=== PATIENT | male | born 1980 | race Caucasian/White ===

== ENCOUNTER 2017-01-11 19:06 | Emergency (ER) | payer OTHER ==
[2017-01-11 19:19] VITALS: O2SAT 99
--- NOTE | 2017-01-11 19:41 | ERPHSYRPT ---
- History of Present Illness Time Seen by Provider: 01/11/17 19:35 Source: patient, police Exam Limitations: intoxication Patient Subjective Stated Complaint: "i drank a fifth of whiskey w 3 other people". 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 The patient is clearly intoxicated and smells of alcohol. He tells me he is a little bit tired but has no complaints. He states he shared two 40 ounce bottles of whiskey. Timing/Duration: today Severity: moderate Modifying Factors: Improves With: other (alcohol) Allergies/Adverse Reactions: No Known Drug Allergies Allergy (Verified 01/11/17 19:19) Home Medications: No Home Meds 1 ea UD 11/19/16 [History] Hx Influenza Vaccination/Date Given: Yes (2012) - Review of Systems Constitutional: No Fever, No Chills Eyes: No Symptoms Ears, Nose, & Throat: No Symptoms Respiratory: No Cough, No Dyspnea Cardiac: No Chest Pain, No Edema, No Syncope Abdominal/Gastrointestinal: No Abdominal Pain, No Nausea, No Vomiting, No Diarrhea Genitourinary Symptoms: No Dysuria Musculoskeletal: No Back Pain, No Neck Pain Skin: No Rash Neurological: Irritability Psychological: Alcohol Abuse Endocrine: No Symptoms Hematologic/Lymphatic: No Symptoms Immunological/Allergic: No Symptoms All Other Systems: Reviewed and Negative - Past Medical History Neurological History: No Pertinent History ENT History: No Pertinent History Cardiac History: No Pertinent History Respiratory History: Bronchitis Endocrine Medical History: No Pertinent History Musculoskeletal History: Degenerative Disk Disease GI Medical History: No Pertinent History History: No Pertinent History Psycho-Social History: Anxiety Male Reproductive Disorders: No Pertinent History - Past Surgical History Past Surgical History: Yes Neuro Surgical History: No Pertinent History Cardiac: No Pertinent History Respiratory: No Pertinent History Gastrointestinal: No Pertinent History Genitourinary: No Pertinent History Musculoskeletal: No Pertinent History, Orthopedic Surgery Male Surgical History: No Pertinent History Other Surgical History: wrist x2, rt femur - Social History Smoking Status: Current every day smoker How long have you smoked: 20 Exposure to second hand smoke: Yes Drug Use: none Patient Lives Alone: Yes - Nursing Vital Signs Nursing Vital Signs: Initial Vital Signs Temperature 97.6 F Temperature Source Oral Pulse Rate 79 Respiratory Rate 12 Blood Pressure [Right Arm] 108/44 Pain Intensity 0 - Physical Exam General Appearance: other (intoxicated) Eye Exam: PERRL/EOMI, eyes nml inspection Ears, Nose, Throat Exam: normal ENT inspection, TMs normal, pharynx normal, moist mucous membranes Neck Exam: normal inspection, non-tender, supple, full range of motion Respiratory Exam: normal breath sounds, lungs clear, No respiratory distress Cardiovascular Exam: regular rate/rhythm, normal heart sounds, normal peripheral pulses Gastrointestinal/Abdomen Exam: soft, normal bowel sounds, No tenderness, No mass Rectal Exam: not done Back Exam: normal inspection, normal range of motion, No CVA tenderness, No vertebral tenderness Extremity Exam: normal inspection, normal range of motion, pelvis stable Neurologic Exam: alert, oriented x 3, intoxicated appearance Skin Exam: normal color, warm, dry, No rash Lymphatic Exam: No adenopathy SpO2 Interpretation: normal SpO2: 99 Oxygen Delivery: Room Air Ordered Tests: Active Orders 24 hr Category Date Time Status Ethyl Alcohol,Urine Stat Lab 01/11/17 19:44 Completed Lab/Rad Data: Laboratory Results 01/11/17 Range/Units 19:44 Urine pH 6.0 (3-8.5) Urine Ethyl Alcohol 354 H (0.00-20) mg/dl - Progress Progress: improved Progress Note: 01/11/17 20:41 Pt has been sleeping comfortably in the ER and arouses easily. Counseled pt/family regarding: lab results - Departure Time of Disposition: 20:42 Departure Disposition: Assisted/Alf Clinical Impression: Alcohol intoxication Condition: Stable Critical Care Time: No
[2017-01-11 20:38] VITALS: BP 108/44; PULSE 79
== END 2017-01-11 20:52 | disposition home or self-care (01) ==
LOC: ED 19:06
DX: F10.129 Alcohol abuse with intoxication, unspecified (principal)
CPT/HCPCS: 80320; 83986; 99282; 99283

== ENCOUNTER 2024-01-24 14:34 | Observation (INO) | payer OTHER ==
[2024-01-24 15:29] LABS: Absolute Neutrophil Ct (ANC) 13.98 x10^3/uL (1.4-6.9); BASOPHIL % 0.3 % (0.0-0.4); Basophil (Absolute #) 0.05 x10^3/uL (0-0.4); Eosinophil % 0.2 % (0.00-5.0); Eosinophil (Absolute #) 0.03 x10^3/uL (0-0.5); Hematocrit 43.8 % (42-50); Hemoglobin 14.9 g/dL (12.5-18.0); IMMATURE GRAN # 0.05 x10^3u/L (0.00-0.03); IMMATURE GRAN % 0.3 % (0.00-0.4); Lymphocyte (Absolute #) 1.68 x10^3/uL (1.0-4.6); Lymphocytes % 10.1 % (24.0-44.0); Mean Cell Volume 89.2 fL (78-100); Mean Corpuscular Hemoglobin 30.3 pg (26-32); Monocyte (Absolute #) 0.87 x10^3/uL (0.0-1.3); Monocytes % 5.2 % (0.0-12.0); Neutrophil % 83.9 % (36.0-66.0); Platelet Count 326 x10^3/uL (150-450); Red Blood Count 4.91 x10^6/uL (4.1-5.6); Red Cell Distribution Width 12.5 % (11.5-14.0); White Blood Count 16.7 x10^3/uL (4.0-10.5)
--- NOTE | 2024-01-24 15:35 | ERPHSYRPT ---
- History of Present Illness Time Seen by Provider: 01/24/24 15:00 Source: patient Exam Limitations: no limitations Physician History: 43yo m presents by EMS because "they were called to the scene because a man was believed to be high on drugs walking around on the streets, when they arrived pt was requesting a drink, at that time they said they did not have one for him and he requested to be brought to the hospital." Pt admits to meth use 2d ago, as well as marijuana use. Pt has tangential speech, is AxO x 3 on exam but reports he thinks people are thinking he is molesting children." Pt is repeatedly asking to speak w/ his mother and asking to see his children. Pt apparently has no contact w/ his mother. Pt currently denies cp, soa, n/v, SI, HI. Timing/Duration: day(s) (2) Severity of Symptoms-Max: moderate Severity of Symptoms-Current: moderate Context related to: parent, son, daughter Suicidal thoughts: other (no suicidal thoughts, no homicidal thoughts) Associated Symptoms: hallucinating, paranoid Previous symptoms: same symptoms as today (chronic meth user ) Allergies/Adverse Reactions: ciprofloxacin [From Cipro] Adverse Reaction (Verified 01/24/24 15:07) Home Medications: No Home Meds [No Home Meds] 1 rao MCDONNELL UD 11/19/16 [History] Hx Tetanus, Diphtheria Vaccination/Date Given: (unknown) Hx Influenza Vaccination/Date Given: (unknown) Hx Pneumococcal Vaccination/Date Given: (unknown) Travel Risk - Vaccine Status Have you recieved a Covid-19 vaccination: (unknown) 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 IS A SMOKER; L HIP AND L SHOULDER PN. L- SPINE DISCECTOMY W/ DR. DIAL ~ 2018; R FEMUR FX 1996 - Past Surgical History Past Surgical History: (unknown) Neuro Surgical History: No Pertinent History Cardiac: No Pertinent History Respiratory: No Pertinent History Gastrointestinal: No Pertinent History Genitourinary: No Pertinent History Musculoskeletal: No Pertinent History, Orthopedic Surgery Male Surgical History: No Pertinent History Other Surgical History: wrist x2, rt femur - Social History Smoking Status: Unknown if ever smoked How long have you smoked: 20 Exposure to second hand smoke: Yes Drug Use: none Patient Lives Alone: Yes - Review of Systems Constitutional: No Symptoms Respiratory: No Symptoms Cardiac: No Symptoms Abdominal/Gastrointestinal: No Symptoms Psychological: Drug Abuse, Hallucinations, No Suicidal Ideations, No Homicidal Ideations - Nursing Vital Signs Nursing Vital Signs: Initial Vital Signs Pulse Rate 102 H 01/24/24 15:09 Respiratory Rate 19 01/24/24 15:09 Blood Pressure 132/80 01/24/24 15:09 O2 Sat by Pulse Oximetry 100 01/24/24 15:09 Pain Scale Pain Intensity 0 - Physical Exam General Appearance: alert, anxiety, other (disheveled) Respiratory Exam: normal breath sounds, airway intact, No chest tenderness, No respiratory distress Cardiovascular Exam: regular rate/rhythm, normal heart sounds Gastrointestinal/Abdominal Exam: soft, No tenderness, No distention Extremities Exam: normal inspection Neurological Exam: alert, oriented x 3, agitated (intermittently agitated but calms quickly ), anxious Appearance: disheveled, No appropriate insight Behavior/Eye Contact/Speech: alert & cooperative, increased rate of speech, intoxicated appearance Thoughts/Hallucinations: auditory hallucinations (believes people are talking about him molesting children), delusions, flight of ideas, paranoid SpO2 Interpretation: normal SpO2: 99 O2 Delivery: Room Air Ordered Tests: Active Orders 24 hr Category Date Time Status Clean Catch Urine Specimen STAT Care 01/24/24 14:41 Active ACETAMINOPHEN Stat Lab 01/24/24 15:05 Completed CBC W DIFF Stat Lab 01/24/24 15:05 Completed CMP Stat Lab 01/24/24 15:05 Completed ETHYL ALCOHOL Stat Lab 01/24/24 15:05 Completed SALICYLATE Stat Lab 01/24/24 15:05 Completed UA W/RFX UR CULTURE Stat Lab 01/24/24 14:43 Completed Urine Triage Profile Stat Lab 01/24/24 16:03 Completed Lab/Rad Data: Laboratory Result Diagrams 01/24/24 15:05 01/24/24 15:05 Laboratory Results 01/24/24 01/24/24 01/24/24 Range/Units 16:03 15:05 15:05 WBC (4.0-10.5) x10^3/uL RBC (4.1-5.6) x10^6/uL Hgb (12.5-18.0) g/dL Hct (42-50) % MCV (78-100) fL MCH (26-32) pg MCHC (32-36) g/dL RDW (11.5-14.0) % Plt Count (150-450) x10^3/uL MPV (7.5-11.0) fL Gran % (36.0-66.0) % Immature Gran % (Auto) (0.00-0.4) % Nucleat RBC Rel Count (0.00-0.1) % Eos # (Auto) (0-0.5) x10^3/uL Immature Gran # (Auto) (0.00-0.03) x10^3u/L Absolute Lymphs (auto) (1.0-4.6) x10^3/uL Absolute Monos (auto) (0.0-1.3) x10^3/uL Absolute Nucleated RBC (0.00-0.01) x10^3u/L Lymphocytes % (24.0-44.0) % Monocytes % (0.0-12.0) % Eosinophils % (0.00-5.0) % Basophils % (0.0-0.4) % Absolute Granulocytes (1.4-6.9) x10^3/uL Basophils # (0-0.4) x10^3/uL Sodium 137 (137-145) mmol/L Potassium 3.6 (3.5-5.1) mmol/L Chloride 102 (98-107) mmol/L Carbon Dioxide 21 L (22-30) mmol/L Anion Gap 16.9 H (5-15) MEQ/L BUN 17 (9-20) mg/dL Creatinine 0.71 (0.66-1.25) mg/dL Estimated GFR 116.0 ML/MIN Glucose 87 (74-106) mg/dL Calcium 10.2 (8.4-10.2) mg/dL Total Bilirubin 1.00 (0.2-1.3) mg/dL AST 42 (17-59) U/L ALT 26 (0-50) U/L Alkaline Phosphatase 82 (38-126) U/L Serum Total Protein 8.5 H (6.3-8.2) g/dL Albumin 5.2 H (3.5-5.0) g/dL Urine Color (Yellow) Urine Appearance (Clear) Urine pH (4.6-8.0) Ur Specific [place] (1.005-1.030) Urine Protein (Negative) Urine Glucose (UA) (Negative) mg/dL Urine Ketones (Negative) Urine Blood (Negative) Urine Nitrite (Negative) Urine Bilirubin (Negative) Urine Urobilinogen (0.2) mg/dL Ur Leukocyte Esterase (Negative) U Hyaline Cast (Auto) (0-2) /LPF Urine Microscopic RBC (0-5) /HPF Urine Microscopic WBC (0-5) /HPF Ur Epithelial Cells (None Seen) /HPF Urine Bacteria (None Seen) /HPF Urine Culture Reflexed (NO) Salicylates < 1.0 L (2-20) mg/dL Urine Opiates Level NEGATIVE (NEGATIVE) Ur Methadone NEGATIVE (NEGATIVE) Acetaminophen < 10 L (10-30) ug/ml Urine Barbiturates NEGATIVE (NEGATIVE) Ur Phencyclidine (PCP) NEGATIVE (NEGATIVE) Urine Amphetamine POSITIVE A (NEGATIVE) U Benzodiazepine Level NEGATIVE (NEGATIVE) Urine Cocaine NEGATIVE (NEGATIVE) Urine Marijuana (THC) POSITIVE A (NEGATIVE) Ethyl Alcohol < 10 (0-10) mg/dL Influenza Type A Ag NEGATIVE (NEGATIVE) Influenza Type B Ag NEGATIVE (NEGATIVE) RSV (PCR) NEGATIVE (NEGATIVE) SARS-CoV-2 (PCR) NEGATIVE (NEGATIVE) 01/24/24 01/24/24 Range/Units 15:05 14:43 WBC 16.7 H (4.0-10.5) x10^3/uL RBC 4.91 (4.1-5.6) x10^6/uL Hgb 14.9 (12.5-18.0) g/dL Hct 43.8 (42-50) % MCV 89.2 (78-100) fL MCH 30.3 (26-32) pg MCHC 34.0 (32-36) g/dL RDW 12.5 (11.5-14.0) % Plt Count 326 (150-450) x10^3/uL MPV 10.0 (7.5-11.0) fL Gran % 83.9 H (36.0-66.0) % Immature Gran % (Auto) 0.3 (0.00-0.4) % Nucleat RBC Rel Count 0.0 (0.00-0.1) % Eos # (Auto) 0.03 (0-0.5) x10^3/uL Immature Gran # (Auto) 0.05 H (0.00-0.03) x10^3u/L Absolute Lymphs (auto) 1.68 (1.0-4.6) x10^3/uL Absolute Monos (auto) 0.87 (0.0-1.3) x10^3/uL Absolute Nucleated RBC 0.00 (0.00-0.01) x10^3u/L Lymphocytes % 10.1 L (24.0-44.0) % Monocytes % 5.2 (0.0-12.0) % Eosinophils % 0.2 (0.00-5.0) % Basophils % 0.3 (0.0-0.4) % Absolute Granulocytes 13.98 H (1.4-6.9) x10^3/uL Basophils # 0.05 (0-0.4) x10^3/uL Sodium (137-145) mmol/L Potassium (3.5-5.1) mmol/L Chloride (98-107) mmol/L Carbon Dioxide (22-30) mmol/L Anion Gap (5-15) MEQ/L BUN (9-20) mg/dL Creatinine (0.66-1.25) mg/dL Estimated GFR ML/MIN Glucose (74-106) mg/dL Calcium (8.4-10.2) mg/dL Total Bilirubin (0.2-1.3) mg/dL AST (17-59) U/L ALT (0-50) U/L Alkaline Phosphatase (38-126) U/L Serum Total Protein (6.3-8.2) g/dL Albumin (3.5-5.0) g/dL Urine Color Yellow (Yellow) Urine Appearance Clear (Clear) Urine pH 7.0 (4.6-8.0) Ur Specific [place] 1.020 (1.005-1.030) Urine Protein Negative (Negative) Urine Glucose (UA) Negative (Negative) mg/dL Urine Ketones Trace A (Negative) Urine Blood Negative (Negative) Urine Nitrite Negative (Negative) Urine Bilirubin Negative (Negative) Urine Urobilinogen 0.2 (0.2) mg/dL Ur Leukocyte Esterase Negative (Negative) U Hyaline Cast (Auto) NONE SEEN (0-2) /LPF Urine Microscopic RBC 0-2 (0-5) /HPF Urine Microscopic WBC 0-2 (0-5) /HPF Ur Epithelial Cells None Seen (None Seen) /HPF Urine Bacteria None Seen (None Seen) /HPF Urine Culture Reflexed NO (NO) Salicylates (2-20) mg/dL Urine Opiates Level (NEGATIVE) Ur Methadone (NEGATIVE) Acetaminophen (10-30) ug/ml Urine Barbiturates (NEGATIVE) Ur Phencyclidine (PCP) (NEGATIVE) Urine Amphetamine (NEGATIVE) U Benzodiazepine Level (NEGATIVE) Urine Cocaine (NEGATIVE) Urine Marijuana (THC) (NEGATIVE) Ethyl Alcohol (0-10) mg/dL Influenza Type A Ag (NEGATIVE) Influenza Type B Ag (NEGATIVE) RSV (PCR) (NEGATIVE) SARS-CoV-2 (PCR) (NEGATIVE) - Progress Progress: improved Progress Note: 01/24/24 18:04 Pt has been agreeable and cooperative throughout stay positive for methamphetamines pt having auditory hallucinations about his neighbors thinking he is a child molester and wanting to kill him pt now reporting homicidal ideations, does not name any people specifically but states "I will get who needs it" requesting evaluation by [facility] for homicidal ideations and auditory hallucinations 01/24/24 19:46 [facility] behavioral health practitioner evaluating pt on tele-health 01/24/24 20:24 awaiting formal recommendation from behavioral health, pt currently denies HI, SI, pt AxO x 3, still paranoid and tangential in speech pattern 01/24/24 20:25 01/24/24 20:53 I discussed inpatient admission w/ pt, he has agreed to stay will not ED pt at this time because he is volunteering to stay plan to admit for auditory hallucinations, HI, methamphetamine intoxication 01/24/24 20:55 will obtain ED if pt attempts to leave AMA, I do not believe pt is safe to self and others at this time 01/24/24 21:05 Discussed admission w/ hospitalist Dr Howard who is willing to accept for observation Medical Desision Making - Discussion of managment Care discussed with:: hospitalist Reviewed:: Test results Agreed on:: place in obs Will see patient: in hospital - Risk of complications Low Risk: Low risk of morbidity from additional dx testing or treatment - Departure Departure Disposition: Observation Clinical Impression: Methamphetamine intoxication, Homicidal ideation, Auditory hallucinations Condition: Stable Critical Care Time: No Referrals: EMANUEL MENDEZ MD [Primary Care Provider] - Follow up/PCP as directed
[2024-01-24 15:42] LABS: ACETAMINOPHEN < 10 ug/ml (10-30); ALBUMIN 5.2 g/dL (3.5-5.0); ALKALINE PHOSPHATASE 82 U/L (38-126); ANION GAP 16.9 MEQ/L (5-15); BLOOD UREA NITROGEN 17 mg/dL (9-20); CHLORIDE 102 mmol/L (98-107); Calcium 10.2 mg/dL (8.4-10.2); Carbon Dioxide 21 mmol/L (22-30); Creatinine 1 0.71 mg/dL (0.66-1.25); ETHYL ALCOHOL < 10 mg/dL (0-10); Glucose 87 mg/dL (74-106); Potassium 3.6 mmol/L (3.5-5.1); SALICYLATE < 1.0 mg/dL (2-20); SGOT/AST 42 U/L (17-59); SGPT/ALT 26 U/L (0-50); SODIUM 137 mmol/L (137-145); Total Protein 8.5 g/dL (6.3-8.2)
[2024-01-24 16:08] LABS: INFLUENZA A NEGATIVE (NEGATIVE); INFLUENZA B NEGATIVE (NEGATIVE); RESPIRATORY SYNCTIAL VIRUS NEGATIVE (NEGATIVE); SARS-CoV-2 Xpert Express NEGATIVE (NEGATIVE)
[2024-01-24 16:30] LABS: Appearance Clear (Clear); Bacteria None Seen /HPF (None Seen); Bilirubin Negative (Negative); Blood Negative (Negative); Epithelial Cells None Seen /HPF (None Seen); Glucose, Urine Negative (Negative); Hyaline Casts NONE SEEN /LPF (0-2); Ketones Trace (Negative); Leukocyte Esterase Negative (Negative); Nitrite Negative (Negative); Protein,Urine Dip Negative (Negative); RBC 0-2 /HPF (0-5); Urobilinogen 0.2 mg/dL (0.2); WBC 0-2 /HPF (0-5)
[2024-01-24 16:31] LABS: Barbiturate,Urine NEGATIVE (NEGATIVE); Benzodiazepine,Urine NEGATIVE (NEGATIVE); Cocaine,Urine NEGATIVE (NEGATIVE); Methadone,Urine NEGATIVE (NEGATIVE); Opiate,Urine NEGATIVE (NEGATIVE); PCP,Urine NEGATIVE (NEGATIVE); THC,Urine POSITIVE (NEGATIVE)
[2024-01-24 16:31] LABS: ADD URINE CULTURE? NO (NO)
[2024-01-24 17:26] LABS: Amphetamine,Urine POSITIVE (NEGATIVE)
[2024-01-24] MEDS ORDERED: PHENERGAN 25 MG PO PRN (21:45)
--- NOTE | 2024-01-24 21:52 | PCM.HP ---
History of Present Illness - Chief Complaint Chief Complaint: methamphetamine intoxication History of Present Illness: is a 43 year old male with no known past medical history presented via EMS for erratic behaviors. He admitted to meth and marijuana use - UDS positive for both. He apparently told ER physician of some homicidal ideation - thus ER physician obliagted to admitted pt to monitor overnight and behavioral service consult in AM He is seen by me via telemedicine. He is calm and resting right now, on RA - Review of Systems Constitutional: No Symptoms Eyes: No Symptoms Ears, Nose, & Throat: No Symptoms Respiratory: No Symptoms Cardiac: No Symptoms Abdominal/Gastrointestinal: No Symptoms Genitourinary Symptoms: No Symptoms Musculoskeletal: No Symptoms Skin: No Symptoms Neurological: Irritability Psychological: Drug Abuse, Homicidal Ideations Endocrine: No Symptoms Hematologic/Lymphatic: No Symptoms Immunological/Allergic: No Symptoms Medications & Allergies Home Medications: Home Medication List No Home Meds [No Home Meds] 1 ea UD 11/19/16 [History Confirmed 01/24/24] Allergies/Adverse Reactions: Allergies Allergy/AdvReac Type Severity Reaction Status Date / Time ciprofloxacin [From Cipro] AdvReac Verified 01/24/24 15:07 - Past Medical History Past Medical History: (unknown) Neurological History: Other ENT History: No Pertinent History Cardiac History: No Pertinent History Respiratory History: No Pertinent History Endocrine Medical History: Other Musculoskelatal History: Other GI Medical History: No Pertinent History History: No Pertinent History Pyscho-Social History: Anxiety Male Reproductive Disorders: No Pertinent History Comment: HEPATITIS C; PT. IS A SMOKER; L HIP AND L SHOULDER PN. L- SPINE DISCECTOMY W/ DR. DIAL ~ 2017; R FEMUR FX 1996 - Past Surgical History Past Surgical History: (unknown) Neuro Surgical History: No Pertinent History Cardiac History: No Pertinent History Respiratory Surgery: No Pertinent History GI Surgical History: No Pertinent History Genitourinary Surgical Hx: No Pertinent History Musculskeletal Surgical Hx: No Pertinent History, Orthopedic Surgery Male Surgical History: No Pertinent History Other Surgical History: wrist x2, rt femur Significant Family History: no pertinent family hx - Social History Smoking Status: Unknown if ever smoked How long have you smoked: 20 Exposure to second hand smoke: Yes Alcohol: None, Weekly Drug Use: none - Physical Exam Vital Signs: Vital Signs - 24 hr Pulse Resp BP BP Pulse Ox 01/24/24 21:08 99 01/24/24 19:01 128/93 01/24/24 18:31 126/83 01/24/24 18:00 91 H 18 126/83 99 01/24/24 17:30 145/91 01/24/24 17:01 89 18 135/92 01/24/24 17:00 98 H 20 145/91 100 01/24/24 16:30 123/82 01/24/24 16:00 88 18 140/95 123/82 99 01/24/24 15:09 102 H 19 132/80 100 General Appearance: no apparent distress, anxiety Neurologic Exam: alert, oriented x 3, cooperative Eye Exam: PERRL/EOMI, eyes nml inspection Ears, Nose, Throat Exam: normal ENT inspection Neck Exam: normal inspection, full range of motion Respiratory Exam: normal breath sounds, lungs clear Cardiovascular Exam: regular rate/rhythm, normal heart sounds Gastrointestinal/Abdomen Exam: soft, normal bowel sounds Rectal Exam: deferred Back Exam: normal inspection Extremity Exam: normal inspection Skin Exam: normal color Results - Labs Lab/Micro Results: Lab Results-Last 24 Hours 01/24/24 01/24/24 01/24/24 Range/Units 14:43 15:05 15:05 WBC 16.7 H (4.0-10.5) x10^3/uL RBC 4.91 (4.1-5.6) x10^6/uL Hgb 14.9 (12.5-18.0) g/dL Hct 43.8 (42-50) % MCV 89.2 (78-100) fL MCH 30.3 (26-32) pg MCHC 34.0 (32-36) g/dL RDW 12.5 (11.5-14.0) % Plt Count 326 (150-450) x10^3/uL MPV 10.0 (7.5-11.0) fL Gran % 83.9 H (36.0-66.0) % Immature Gran % (Auto) 0.3 (0.00-0.4) % Nucleat RBC Rel Count 0.0 (0.00-0.1) % Eos # (Auto) 0.03 (0-0.5) x10^3/uL Immature Gran # (Auto) 0.05 H (0.00-0.03) x10^3u/L Absolute Lymphs (auto) 1.68 (1.0-4.6) x10^3/uL Absolute Monos (auto) 0.87 (0.0-1.3) x10^3/uL Absolute Nucleated RBC 0.00 (0.00-0.01) x10^3u/L Lymphocytes % 10.1 L (24.0-44.0) % Monocytes % 5.2 (0.0-12.0) % Eosinophils % 0.2 (0.00-5.0) % Basophils % 0.3 (0.0-0.4) % Absolute Granulocytes 13.98 H (1.4-6.9) x10^3/uL Basophils # 0.05 (0-0.4) x10^3/uL Sodium 137 (137-145) mmol/L Potassium 3.6 (3.5-5.1) mmol/L Chloride 102 (98-107) mmol/L Carbon Dioxide 21 L (22-30) mmol/L Anion Gap 16.9 H (5-15) MEQ/L BUN 17 (9-20) mg/dL Creatinine 0.71 (0.66-1.25) mg/dL Estimated GFR 116.0 ML/MIN Glucose 87 (74-106) mg/dL Calcium 10.2 (8.4-10.2) mg/dL Total Bilirubin 1.00 (0.2-1.3) mg/dL AST 42 (17-59) U/L ALT 26 (0-50) U/L Alkaline Phosphatase 82 (38-126) U/L Serum Total Protein 8.5 H (6.3-8.2) g/dL Albumin 5.2 H (3.5-5.0) g/dL Urine Color Yellow (Yellow) Urine Appearance Clear (Clear) Urine pH 7.0 (4.6-8.0) Ur Specific [place] 1.020 (1.005-1.030) Urine Protein Negative (Negative) Urine Glucose (UA) Negative (Negative) mg/dL Urine Ketones Trace A (Negative) Urine Blood Negative (Negative) Urine Nitrite Negative (Negative) Urine Bilirubin Negative (Negative) Urine Urobilinogen 0.2 (0.2) mg/dL Ur Leukocyte Esterase Negative (Negative) U Hyaline Cast (Auto) NONE SEEN (0-2) /LPF Urine Microscopic RBC 0-2 (0-5) /HPF Urine Microscopic WBC 0-2 (0-5) /HPF Ur Epithelial Cells None Seen (None Seen) /HPF Urine Bacteria None Seen (None Seen) /HPF Urine Culture Reflexed NO (NO) Salicylates < 1.0 L (2-20) mg/dL Urine Opiates Level (NEGATIVE) Ur Methadone (NEGATIVE) Acetaminophen < 10 L (10-30) ug/ml Urine Barbiturates (NEGATIVE) Ur Phencyclidine (PCP) (NEGATIVE) Urine Amphetamine (NEGATIVE) U Benzodiazepine Level (NEGATIVE) Urine Cocaine (NEGATIVE) Urine Marijuana (THC) (NEGATIVE) Ethyl Alcohol < 10 (0-10) mg/dL Influenza Type A Ag (NEGATIVE) Influenza Type B Ag (NEGATIVE) RSV (PCR) (NEGATIVE) SARS-CoV-2 (PCR) (NEGATIVE) 01/24/24 01/24/24 Range/Units 15:05 16:03 WBC (4.0-10.5) x10^3/uL RBC (4.1-5.6) x10^6/uL Hgb (12.5-18.0) g/dL Hct (42-50) % MCV (78-100) fL MCH (26-32) pg MCHC (32-36) g/dL RDW (11.5-14.0) % Plt Count (150-450) x10^3/uL MPV (7.5-11.0) fL Gran % (36.0-66.0) % Immature Gran % (Auto) (0.00-0.4) % Nucleat RBC Rel Count (0.00-0.1) % Eos # (Auto) (0-0.5) x10^3/uL Immature Gran # (Auto) (0.00-0.03) x10^3u/L Absolute Lymphs (auto) (1.0-4.6) x10^3/uL Absolute Monos (auto) (0.0-1.3) x10^3/uL Absolute Nucleated RBC (0.00-0.01) x10^3u/L Lymphocytes % (24.0-44.0) % Monocytes % (0.0-12.0) % Eosinophils % (0.00-5.0) % Basophils % (0.0-0.4) % Absolute Granulocytes (1.4-6.9) x10^3/uL Basophils # (0-0.4) x10^3/uL Sodium (137-145) mmol/L Potassium (3.5-5.1) mmol/L Chloride (98-107) mmol/L Carbon Dioxide (22-30) mmol/L Anion Gap (5-15) MEQ/L BUN (9-20) mg/dL Creatinine (0.66-1.25) mg/dL Estimated GFR ML/MIN Glucose (74-106) mg/dL Calcium (8.4-10.2) mg/dL Total Bilirubin (0.2-1.3) mg/dL AST (17-59) U/L ALT (0-50) U/L Alkaline Phosphatase (38-126) U/L Serum Total Protein (6.3-8.2) g/dL Albumin (3.5-5.0) g/dL Urine Color (Yellow) Urine Appearance (Clear) Urine pH (4.6-8.0) Ur Specific [place] (1.005-1.030) Urine Protein (Negative) Urine Glucose (UA) (Negative) mg/dL Urine Ketones (Negative) Urine Blood (Negative) Urine Nitrite (Negative) Urine Bilirubin (Negative) Urine Urobilinogen (0.2) mg/dL Ur Leukocyte Esterase (Negative) U Hyaline Cast (Auto) (0-2) /LPF Urine Microscopic RBC (0-5) /HPF Urine Microscopic WBC (0-5) /HPF Ur Epithelial Cells (None Seen) /HPF Urine Bacteria (None Seen) /HPF Urine Culture Reflexed (NO) Salicylates (2-20) mg/dL Urine Opiates Level NEGATIVE (NEGATIVE) Ur Methadone NEGATIVE (NEGATIVE) Acetaminophen (10-30) ug/ml Urine Barbiturates NEGATIVE (NEGATIVE) Ur Phencyclidine (PCP) NEGATIVE (NEGATIVE) Urine Amphetamine POSITIVE A (NEGATIVE) U Benzodiazepine Level NEGATIVE (NEGATIVE) Urine Cocaine NEGATIVE (NEGATIVE) Urine Marijuana (THC) POSITIVE A (NEGATIVE) Ethyl Alcohol (0-10) mg/dL Influenza Type A Ag NEGATIVE (NEGATIVE) Influenza Type B Ag NEGATIVE (NEGATIVE) RSV (PCR) NEGATIVE (NEGATIVE) SARS-CoV-2 (PCR) NEGATIVE (NEGATIVE) Assessment/Plan (1) Methamphetamine intoxication Current Visit: Yes Status: Acute Assessment & Plan: Supportive care. Counseled on cessation Code(s): F15.929 - OTHER STIMULANT USE, UNSP WITH INTOXICATION, UNSPECIFIED (2) Homicidal ideation Current Visit: Yes Status: Acute Assessment & Plan: He admkitted this to the ER physician. He is telling me he has no SI or HI. Plan behavioral consult in AM Code(s): R45.850 - HOMICIDAL IDEATIONS (3) Marijuana use Current Visit: No Status: Acute Assessment & Plan: Supportive measures, counseled on cessation Code(s): F12.90 - CANNABIS USE, UNSPECIFIED, UNCOMPLICATED (4) Leukocytosis Current Visit: Yes Status: Acute Assessment & Plan: WBC 16.7. Likely a stress reactionmm. No obvious sign of infection noted. Repeat CBC in AM Code(s): D72.829 - ELEVATED WHITE BLOOD CELL COUNT, UNSPECIFIED Telemedicine Encounter - Telemedicine Encounter Telemedicine Encounter: The entirety of this encounter was performed via Telemedicine" Pt gave me verbal consent to have this telemedicine visit
[2024-01-24] MEDS: Ativan 0.5 MG PO PRN (23:16)
[2024-01-24] MEDS: Sodium Chloride 0.9% 1000 ML 1,000 ML IV SCH (23:36)
[2024-01-25 05:30] LABS: Hematocrit 38.3 % (42-50); Hemoglobin 12.9 g/dL (12.5-18.0); Mean Cell Volume 89.5 fL (78-100); Mean Corpuscular Hemoglobin 30.1 pg (26-32); Mean Corpuscular Hgb Concent. 33.7 g/dL (32-36); Mean Platelet Volume 9.5 fL (7.5-11.0); Platelet Count 295 x10^3/uL (150-450); Red Blood Count 4.28 x10^6/uL (4.1-5.6); Red Cell Distribution Width 12.8 % (11.5-14.0)
[2024-01-25] MEDS: Nicoderm CQ 21 MG TOP SCH (08:12)
[2024-01-25] MEDS: TYLENOL 325 MG PO PRN ×2 (08:12→13:11)
[2024-01-25 08:52] LABS: ALBUMIN 4.1 g/dL (3.5-5.0); BILIRUBIN,TOTAL 1.3 mg/dL (0.2-1.3); Calcium 9.1 mg/dL (8.4-10.2); Creatinine 1 0.68 mg/dL (0.66-1.25); EST GLOMERULAR FILTRATION RATE 117.6 ML/MIN; Potassium 3.8 mmol/L (3.5-5.1); Total Protein 6.9 g/dL (6.3-8.2)
[2024-01-25] MEDS: ENOXAPARIN SODIUM SQ SCH (09:52)
--- NOTE | 2024-01-25 13:41 | PCM.NOTE ---
Date and Time: 01/25/24 1328 Subjective Assessment: 01/25/24 is a 43 year old male with no known past medical history presented via EMS for erratic behaviors. He admitted to meth and marijuana use - UDS positive for both. He apparently told ER physician of some homicidal ideation - thus ER physician obligated to admitted pt to monitor overnight and behavioral service consult in AM. Per records he had a behavioral health consult last night. They recommended d/c when stable. He is not mentally stable and told this provider this morning that he has homicidal ideation and will hurt whomever he feels like needs it. He did also come in with a shank per staff. Security is outside pt's door. His behavior is erratic. He is pacing in room. He does not make sense when he speaks. This morning he sat on top of he bedside table with legs crossed and pushed himself off the shi around the room. He spoke to data warehouse administrator he knows he is not emergency detained and can leave wheneeve he wants. Petition for ED filled out and awaiting to be completed by dept. He denies suicidal ideation. Awaiting another behavioral health consult base on today's events. He denies CP, SOB, abd. pain, N/V/D. He does c/o chronic right hip and knee pain and Tylenol provided. - Review of Systems Constitutional: No Fever, No Chills Eyes: No Symptoms Ears, Nose, & Throat: No Symptoms Respiratory: No Cough, No Short Of Breath Cardiac: No Chest Pain, No Edema, No Syncope Abdominal/Gastrointestinal: No Abdominal Pain, No Nausea, No Vomiting, No Diarrhea Genitourinary Symptoms: No Dysuria Musculoskeletal: No Back Pain, No Neck Pain Skin: No Rash Neurological: No Dizziness, No Focal Weakness, No Sensory Changes Psychological: Drug Abuse, Homicidal Ideations Endocrine: No Symptoms Hematologic/Lymphatic: No Symptoms Immunological/Allergic: No Symptoms Objective Exam General Appearance: no apparent distress, alert Neurologic Exam: alert, cooperative, normal mood/affect, nml cerebellar function, sensation nml, confusion, No motor deficits Skin Exam: normal color, warm, dry Wound Assessment: Skin/Wound Assessment Wound/Incision Assessment Start: 01/24/24 23:12 Text: Status: Active Freq: Q6H Protocol: Document 01/25/24 11:00 KD (Rec: 01/25/24 11:55 KD [id number]) Wound/Incision Assessment Right Foot Wound Assessment Shift Assessment Wound Type blister Drainage Amount None Drainage Odor None/Absent Comment open blisters, appearing old, on bottom of right foot, pt reports walking in excess and pacing in the last few days causing blisters. Left Foot Wound Assessment Shift Assessment Wound Type blister Drainage Amount None Drainage Odor None/Absent Comment open bilster appears to be old on the bottom of the left foot Wound Photo Photo Taken No Eye Exam: PERRL, EOMI, eyes nml inspection Ears, Nose, Throat Exam: normal ENT inspection, pharynx normal, moist mucous membranes Neck Exam: normal inspection, non-tender, supple, full range of motion Respiratory Exam: normal breath sounds, lungs clear, No respiratory distress Cardiovascular Exam: regular rate/rhythm, normal heart sounds Gastrointestinal/Abdomen Exam: soft, No tenderness, No mass Extremity Exam: normal inspection, normal range of motion Back Exam: normal inspection, normal range of motion, No CVA tenderness, No vertebral tenderness Male Genitalia Exam: deferred Rectal Exam: deferred OBJECTIVE DATA Vital Signs: Vital Signs - 24 hr Temp Pulse Resp BP BP Pulse Ox 01/25/24 11:20 97.5 F 91 H 18 122/75 100 01/25/24 07:10 97.5 F 87 18 122/75 100 01/24/24 22:53 97.1 F 88 14 134/85 99 01/24/24 21:23 98 H 14 120/91 96 01/24/24 21:08 99 01/24/24 19:01 128/93 01/24/24 18:31 126/83 01/24/24 18:00 91 H 18 126/83 99 01/24/24 17:30 145/91 01/24/24 17:01 89 18 135/92 01/24/24 17:00 98 H 20 145/91 100 01/24/24 16:30 123/82 01/24/24 16:00 88 18 140/95 123/82 99 01/24/24 15:09 102 H 19 132/80 100 Pain Assessment - Last Documented Pain Intensity 9 Pain Scale Used 0-10 Pain Scale Intake and Output: Intake & Output 01/23/24 01/24/24 01/25/24 01/26/24 11:59 11:59 11:59 11:59 Intake Total 580 580 Balance 580 580 Weight 81.3 kg Lab Results: Lab Results-Last 24 Hours 01/24/24 01/24/24 01/24/24 Range/Units 14:43 15:05 15:05 WBC 16.7 H (4.0-10.5) x10^3/uL RBC 4.91 (4.1-5.6) x10^6/uL Hgb 14.9 (12.5-18.0) g/dL Hct 43.8 (42-50) % MCV 89.2 (78-100) fL MCH 30.3 (26-32) pg MCHC 34.0 (32-36) g/dL RDW 12.5 (11.5-14.0) % Plt Count 326 (150-450) x10^3/uL MPV 10.0 (7.5-11.0) fL Gran % 83.9 H (36.0-66.0) % Immature Gran % (Auto) 0.3 (0.00-0.4) % Nucleat RBC Rel Count 0.0 (0.00-0.1) % Eos # (Auto) 0.03 (0-0.5) x10^3/uL Immature Gran # (Auto) 0.05 H (0.00-0.03) x10^3u/L Absolute Lymphs (auto) 1.68 (1.0-4.6) x10^3/uL Absolute Monos (auto) 0.87 (0.0-1.3) x10^3/uL Absolute Nucleated RBC 0.00 (0.00-0.01) x10^3u/L Lymphocytes % 10.1 L (24.0-44.0) % Monocytes % 5.2 (0.0-12.0) % Eosinophils % 0.2 (0.00-5.0) % Basophils % 0.3 (0.0-0.4) % Absolute Granulocytes 13.98 H (1.4-6.9) x10^3/uL Basophils # 0.05 (0-0.4) x10^3/uL Sodium 137 (137-145) mmol/L Potassium 3.6 (3.5-5.1) mmol/L Chloride 102 (98-107) mmol/L Carbon Dioxide 21 L (22-30) mmol/L Anion Gap 16.9 H (5-15) MEQ/L BUN 17 (9-20) mg/dL Creatinine 0.71 (0.66-1.25) mg/dL Estimated GFR 116.0 ML/MIN Glucose 87 (74-106) mg/dL Calcium 10.2 (8.4-10.2) mg/dL Total Bilirubin 1.00 (0.2-1.3) mg/dL AST 42 (17-59) U/L ALT 26 (0-50) U/L Alkaline Phosphatase 82 (38-126) U/L Serum Total Protein 8.5 H (6.3-8.2) g/dL Albumin 5.2 H (3.5-5.0) g/dL Urine Color Yellow (Yellow) Urine Appearance Clear (Clear) Urine pH 7.0 (4.6-8.0) Ur Specific [place] 1.020 (1.005-1.030) Urine Protein Negative (Negative) Urine Glucose (UA) Negative (Negative) mg/dL Urine Ketones Trace A (Negative) Urine Blood Negative (Negative) Urine Nitrite Negative (Negative) Urine Bilirubin Negative (Negative) Urine Urobilinogen 0.2 (0.2) mg/dL Ur Leukocyte Esterase Negative (Negative) U Hyaline Cast (Auto) NONE SEEN (0-2) /LPF Urine Microscopic RBC 0-2 (0-5) /HPF Urine Microscopic WBC 0-2 (0-5) /HPF Ur Epithelial Cells None Seen (None Seen) /HPF Urine Bacteria None Seen (None Seen) /HPF Urine Culture Reflexed NO (NO) Salicylates < 1.0 L (2-20) mg/dL Urine Opiates Level (NEGATIVE) Ur Methadone (NEGATIVE) Acetaminophen < 10 L (10-30) ug/ml Urine Barbiturates (NEGATIVE) Ur Phencyclidine (PCP) (NEGATIVE) Urine Amphetamine (NEGATIVE) U Benzodiazepine Level (NEGATIVE) Urine Cocaine (NEGATIVE) Urine Marijuana (THC) (NEGATIVE) Ethyl Alcohol < 10 (0-10) mg/dL Influenza Type A Ag (NEGATIVE) Influenza Type B Ag (NEGATIVE) RSV (PCR) (NEGATIVE) SARS-CoV-2 (PCR) (NEGATIVE) 02/25/24 02/25/24 02/26/24 Range/Units 15:05 16:03 05:30 WBC 11.0 H (4.0-10.5) x10^3/uL RBC 4.28 (4.1-5.6) x10^6/uL Hgb 12.9 (12.5-18.0) g/dL Hct 38.3 L (42-50) % MCV 89.5 (78-100) fL MCH 30.1 (26-32) pg MCHC 33.7 (32-36) g/dL RDW 12.8 (11.5-14.0) % Plt Count 295 (150-450) x10^3/uL MPV 9.5 (7.5-11.0) fL Gran % (36.0-66.0) % Immature Gran % (Auto) (0.00-0.4) % Nucleat RBC Rel Count (0.00-0.1) % Eos # (Auto) (0-0.5) x10^3/uL Immature Gran # (Auto) (0.00-0.03) x10^3u/L Absolute Lymphs (auto) (1.0-4.6) x10^3/uL Absolute Monos (auto) (0.0-1.3) x10^3/uL Absolute Nucleated RBC (0.00-0.01) x10^3u/L Lymphocytes % (24.0-44.0) % Monocytes % (0.0-12.0) % Eosinophils % (0.00-5.0) % Basophils % (0.0-0.4) % Absolute Granulocytes (1.4-6.9) x10^3/uL Basophils # (0-0.4) x10^3/uL Sodium (137-145) mmol/L Potassium (3.5-5.1) mmol/L Chloride (98-107) mmol/L Carbon Dioxide (22-30) mmol/L Anion Gap (5-15) MEQ/L BUN (9-20) mg/dL Creatinine (0.66-1.25) mg/dL Estimated GFR ML/MIN Glucose (74-106) mg/dL Calcium (8.4-10.2) mg/dL Total Bilirubin (0.2-1.3) mg/dL AST (17-59) U/L ALT (0-50) U/L Alkaline Phosphatase (38-126) U/L Serum Total Protein (6.3-8.2) g/dL Albumin (3.5-5.0) g/dL Urine Color (Yellow) Urine Appearance (Clear) Urine pH (4.6-8.0) Ur Specific [place] (1.005-1.030) Urine Protein (Negative) Urine Glucose (UA) (Negative) mg/dL Urine Ketones (Negative) Urine Blood (Negative) Urine Nitrite (Negative) Urine Bilirubin (Negative) Urine Urobilinogen (0.2) mg/dL Ur Leukocyte Esterase (Negative) U Hyaline Cast (Auto) (0-2) /LPF Urine Microscopic RBC (0-5) /HPF Urine Microscopic WBC (0-5) /HPF Ur Epithelial Cells (None Seen) /HPF Urine Bacteria (None Seen) /HPF Urine Culture Reflexed (NO) Salicylates (2-20) mg/dL Urine Opiates Level NEGATIVE (NEGATIVE) Ur Methadone NEGATIVE (NEGATIVE) Acetaminophen (10-30) ug/ml Urine Barbiturates NEGATIVE (NEGATIVE) Ur Phencyclidine (PCP) NEGATIVE (NEGATIVE) Urine Amphetamine POSITIVE A (NEGATIVE) U Benzodiazepine Level NEGATIVE (NEGATIVE) Urine Cocaine NEGATIVE (NEGATIVE) Urine Marijuana (THC) POSITIVE A (NEGATIVE) Ethyl Alcohol (0-10) mg/dL Influenza Type A Ag NEGATIVE (NEGATIVE) Influenza Type B Ag NEGATIVE (NEGATIVE) RSV (PCR) NEGATIVE (NEGATIVE) SARS-CoV-2 (PCR) NEGATIVE (NEGATIVE) 01/25/24 Range/Units 05:30 WBC (4.0-10.5) x10^3/uL RBC (4.1-5.6) x10^6/uL Hgb (12.5-18.0) g/dL Hct (42-50) % MCV (78-100) fL MCH (26-32) pg MCHC (32-36) g/dL RDW (11.5-14.0) % Plt Count (150-450) x10^3/uL MPV (7.5-11.0) fL Gran % (36.0-66.0) % Immature Gran % (Auto) (0.00-0.4) % Nucleat RBC Rel Count (0.00-0.1) % Eos # (Auto) (0-0.5) x10^3/uL Immature Gran # (Auto) (0.00-0.03) x10^3u/L Absolute Lymphs (auto) (1.0-4.6) x10^3/uL Absolute Monos (auto) (0.0-1.3) x10^3/uL Absolute Nucleated RBC (0.00-0.01) x10^3u/L Lymphocytes % (24.0-44.0) % Monocytes % (0.0-12.0) % Eosinophils % (0.00-5.0) % Basophils % (0.0-0.4) % Absolute Granulocytes (1.4-6.9) x10^3/uL Basophils # (0-0.4) x10^3/uL Sodium 136 L (137-145) mmol/L Potassium 3.8 (3.5-5.1) mmol/L Chloride 106 (98-107) mmol/L Carbon Dioxide 23 (22-30) mmol/L Anion Gap 10.0 (5-15) MEQ/L BUN 11 (9-20) mg/dL Creatinine 0.68 (0.66-1.25) mg/dL Estimated GFR 117.6 ML/MIN Glucose 105 (74-106) mg/dL Calcium 9.1 (8.4-10.2) mg/dL Total Bilirubin 1.30 (0.2-1.3) mg/dL AST 43 (17-59) U/L ALT 20 (0-50) U/L Alkaline Phosphatase 68 (38-126) U/L Serum Total Protein 6.9 (6.3-8.2) g/dL Albumin 4.1 (3.5-5.0) g/dL Urine Color (Yellow) Urine Appearance (Clear) Urine pH (4.6-8.0) Ur Specific [place] (1.005-1.030) Urine Protein (Negative) Urine Glucose (UA) (Negative) mg/dL Urine Ketones (Negative) Urine Blood (Negative) Urine Nitrite (Negative) Urine Bilirubin (Negative) Urine Urobilinogen (0.2) mg/dL Ur Leukocyte Esterase (Negative) U Hyaline Cast (Auto) (0-2) /LPF Urine Microscopic RBC (0-5) /HPF Urine Microscopic WBC (0-5) /HPF Ur Epithelial Cells (None Seen) /HPF Urine Bacteria (None Seen) /HPF Urine Culture Reflexed (NO) Salicylates (2-20) mg/dL Urine Opiates Level (NEGATIVE) Ur Methadone (NEGATIVE) Acetaminophen (10-30) ug/ml Urine Barbiturates (NEGATIVE) Ur Phencyclidine (PCP) (NEGATIVE) Urine Amphetamine (NEGATIVE) U Benzodiazepine Level (NEGATIVE) Urine Cocaine (NEGATIVE) Urine Marijuana (THC) (NEGATIVE) Ethyl Alcohol (0-10) mg/dL Influenza Type A Ag (NEGATIVE) Influenza Type B Ag (NEGATIVE) RSV (PCR) (NEGATIVE) SARS-CoV-2 (PCR) (NEGATIVE) Assessment/Plan (1) Homicidal ideation Current Visit: Yes Status: Acute Assessment & Plan: - ID paperwork completed - admitted to homicidal ideation today. - Psych consult today again Code(s): R45.850 - HOMICIDAL IDEATIONS (2) Methamphetamine intoxication Current Visit: Yes Status: Acute Assessment & Plan: - as seen on UDS - advised cessation Code(s): F15.929 - OTHER STIMULANT USE, UNSP WITH INTOXICATION, UNSPECIFIED (3) Chronic right hip pain Current Visit: Yes Status: Acute Assessment & Plan: - Tylenol PRN Code(s): M25.551 - PAIN IN RIGHT HIP; G89.29 - OTHER CHRONIC PAIN (4) Marijuana use Current Visit: No Status: Acute Assessment & Plan: - as seen on UDS - advised cessation D/C plan: today or tomorrow Next of Kin: Nilam Pedersen [phone] VTE: [employer] Code status: Full Code(s): F12.90 - CANNABIS USE, UNSPECIFIED, UNCOMPLICATED
[2024-01-25 16:53] VITALS: TEMP 97.1
[2024-01-25 18:50] LABS: Hematocrit 39.2 % (42-50); Hemoglobin 12.8 g/dL (12.5-18.0); Mean Cell Volume 91.8 fL (78-100); Mean Corpuscular Hgb Concent. 32.7 g/dL (32-36); Mean Platelet Volume 9.3 fL (7.5-11.0); Platelet Count 293 x10^3/uL (150-450); Red Blood Count 4.27 x10^6/uL (4.1-5.6); Red Cell Distribution Width 12.9 % (11.5-14.0); White Blood Count 12.8 x10^3/uL (4.0-10.5)
[2024-01-25 19:02] VITALS: BP 135/81; PULSE 94; RESP 16; O2SAT 97
[2024-01-25 19:05] LABS: ALBUMIN 4.1 g/dL (3.5-5.0); ANION GAP 10.5 MEQ/L (5-15); BILIRUBIN,TOTAL 0.4 mg/dL (0.2-1.3); Creatinine 1 0.74 mg/dL (0.66-1.25); EST GLOMERULAR FILTRATION RATE 114.6 ML/MIN; Total Protein 6.9 g/dL (6.3-8.2)
[2024-01-25 20:19] LABS: Barbiturate,Urine NEGATIVE (NEGATIVE); Benzodiazepine,Urine NEGATIVE (NEGATIVE); Cocaine,Urine NEGATIVE (NEGATIVE); Methadone,Urine NEGATIVE (NEGATIVE); Opiate,Urine NEGATIVE (NEGATIVE); PCP,Urine NEGATIVE (NEGATIVE); THC,Urine POSITIVE (NEGATIVE)
[2024-01-25 20:47] LABS: Amphetamine,Urine POSITIVE (NEGATIVE)
[2024-01-26] MEDS ORDERED: Ativan 1 MG ONE (00:10)
[2024-01-26] MEDS: Ativan 1 MG PO ONE (00:10)
--- NOTE | 2024-01-26 09:27 | PCM.DS ---
Discharge Summary Date of Admission: 01/24/24 22:45 Date of Discharge: 01/26/24 @ 0015 Admitting Physician: MIGUEL HINDS DO Consults: Consults on Case 01/25/24 08:04 Consult,Tracey [Psychiatric Consult] STAT Primary Care Provider: EMANUEL MENDEZ Allergies Allergies ciprofloxacin [From Cipro] Adverse Reaction (Verified 01/24/24 23:35) Hospital Summary - Hospital Course Hospital Course: 01/25/24 is a 43 year old male with no known past medical history presented via EMS for erratic behaviors. He admitted to meth and marijuana use - UDS positive for both. He apparently told ER physician of some homicidal ideation - thus ER physician obligated to admitted pt to monitor overnight and behavioral service consult in AM. Per records he had a behavioral health consult last night . They recommended d/c when stable. He is not mentally stable and told this provider this morning that he has homicidal ideation and will hurt whomever he feels like needs it. He did also come in with a shank per staff. Security is outside pt's door. His behavior is erratic. He is pacing in room. He does not make sense when he speaks. This morning he sat on top of he bedside table with legs crossed and pushed himself off the shi around the room. He spoke to house director he knows he is not emergency detained and can leave wheneeve he wants. Petition for ED filled out and awaiting to be completed by [facility] dept. He denies suicidal ideation. Awaiting another behavioral health consult base on today's events. He denies CP, SOB, abd. pain, N/V/D. He does c/o chronic right hip and knee pain and Tylenol provided. - Vitals & Intake/Output Vital Signs: Vital Signs Temperature 97.1 F 01/25/24 19:02 Pulse Rate 94 H 01/25/24 19:02 Respiratory Rate 16 01/25/24 19:02 Blood Pressure 135/81 01/25/24 19:02 O2 Sat by Pulse Oximetry 97 01/25/24 19:02 Intake & Output: Intake & Output 01/23/24 01/24/24 01/25/24 01/26/24 11:59 11:59 11:59 11:59 Intake Total 580 1420 Balance 580 1420 Weight 81.3 kg - Lab Result Diagrams: 01/25/24 18:43 01/25/24 18:43 Lab Results-Last 24 Hrs: Lab Results-Last 24 Hours 01/25/24 01/25/24 01/25/24 Range/Units 18:18 18:43 18:43 WBC 12.8 H (4.0-10.5) x10^3/uL RBC 4.27 (4.1-5.6) x10^6/uL Hgb 12.8 (12.5-18.0) g/dL Hct 39.2 L (42-50) % MCV 91.8 (78-100) fL MCH 30.0 (26-32) pg MCHC 32.7 (32-36) g/dL RDW 12.9 (11.5-14.0) % Plt Count 293 (150-450) x10^3/uL MPV 9.3 (7.5-11.0) fL Sodium 140 (137-145) mmol/L Potassium 4.0 (3.5-5.1) mmol/L Chloride 105 (98-107) mmol/L Carbon Dioxide 28 (22-30) mmol/L Anion Gap 10.5 (5-15) MEQ/L BUN 17 (9-20) mg/dL Creatinine 0.74 (0.66-1.25) mg/dL Estimated GFR 114.6 ML/MIN Glucose 91 (74-106) mg/dL Calcium 9.0 (8.4-10.2) mg/dL Total Bilirubin 0.40 (0.2-1.3) mg/dL AST 23 (17-59) U/L ALT 20 (0-50) U/L Alkaline Phosphatase 67 (38-126) U/L Serum Total Protein 6.9 (6.3-8.2) g/dL Albumin 4.1 (3.5-5.0) g/dL Urine Opiates Level NEGATIVE (NEGATIVE) Ur Methadone NEGATIVE (NEGATIVE) Urine Barbiturates NEGATIVE (NEGATIVE) Ur Phencyclidine (PCP) NEGATIVE (NEGATIVE) Urine Amphetamine POSITIVE A (NEGATIVE) U Benzodiazepine Level NEGATIVE (NEGATIVE) Urine Cocaine NEGATIVE (NEGATIVE) Urine Marijuana (THC) POSITIVE A (NEGATIVE) Discharge Exam General Appearance: no apparent distress, alert Neurologic Exam: alert, nml cerebellar function, sensation nml, disoriented, No motor deficits Eye Exam: PERRL, EOMI, eyes nml inspection Ears, Nose, Throat Exam: normal ENT inspection, pharynx normal, moist mucous membranes Neck Exam: normal inspection, non-tender, supple, full range of motion Respiratory Exam: normal breath sounds, lungs clear, No respiratory distress Cardiovascular Exam: regular rate/rhythm, normal heart sounds Gastrointestinal/Abdomen Exam: soft, No tenderness, No mass Male Genitalia Exam: deferred Rectal Exam: deferred Back Exam: normal inspection, normal range of motion, No CVA tenderness, No vertebral tenderness Extremity Exam: normal inspection, normal range of motion Skin Exam: normal color, warm, dry Final Diagnosis/Problem List - Final Discharge Diagnosis/Problem (1) Homicidal ideation Status: Acute Code(s): R45.850 - HOMICIDAL IDEATIONS (2) Methamphetamine intoxication Status: Acute Code(s): F15.929 - OTHER STIMULANT USE, UNSP WITH INTOXICATION, UNSPECIFIED (3) Chronic right hip pain Status: Acute Code(s): M25.551 - PAIN IN RIGHT HIP; G89.29 - OTHER CHRONIC PAIN (4) Marijuana use Status: Acute Assessment & Plan: (1) Homicidal ideation Current Visit: Yes Status: Acute Assessment & Plan: - ID paperwork completed - admitted to homicidal ideation today. - Psych consult today again - [facility] requesting labs be redrawn prior to admission- competed Code(s): R45.850 - HOMICIDAL IDEATIONS (2) Methamphetamine intoxication Current Visit: Yes Status: Acute Assessment & Plan: - as seen on UDS - advised cessation Code(s): F15.929 - OTHER STIMULANT USE, UNSP WITH INTOXICATION, UNSPECIFIED (3) Chronic right hip pain Current Visit: Yes Status: Acute Assessment & Plan: - Tylenol PRN Code(s): M25.551 - PAIN IN RIGHT HIP; G89.29 - OTHER CHRONIC PAIN (4) Marijuana use Current Visit: No Status: Acute Assessment & Plan: - as seen on UDS - advised cessation Code(s): F12.90 - CANNABIS USE, UNSPECIFIED, UNCOMPLICATED - Discharge Discharge Date: 01/26/24 (@ [facility]/ [facility] IP) Disposition: DC TO OTHER HOSP Condition: Stable Prescriptions: New Lorazepam 0.5 mg [Ativan 0.5 MG] 0.5 mg PO Q6H PRN PRN tablet PRN Reason: Anxiety Enoxaparin Sodium [Enoxaparin Sodium] 40 mg SQ DAILY Nicotine 21 mg [Nicoderm CQ 21 MG] 21 mg TOP Q24H patch Promethazine HCl 25 mg [Phenergan 25 mg] 25 mg PO Q6HPRN PRN tablet PRN Reason: Nausea/Vomiting Acetaminophen 325 mg [Tylenol 325 mg] 650 mg PO Q4H PRN PRN tablet PRN Reason: Pain And/Or Fever Continue No Home Meds [No Home Meds] 1 rao UD Follow up with: EMANUEL MENDEZ MD [Primary Care Provider] - Forms: Ambulance Transport Record, Transfer Record Inter-Agency
== END 2024-01-26 00:15 ==
LOC: ED 14:34 → MED SURG 22:45
PROVIDERS: ADMIT Internal Medicine; ATTEND Internal Medicine
DX: R45.850 Homicidal ideations (principal); F15.929 Other stimulant use, unspecified with intoxication, unspecified; M25.551 Pain in right hip; G89.29 Other chronic pain; F12.90 Cannabis use, unspecified, uncomplicated; Z20.828 Contact with and (suspected) exposure to other viral communicable diseases
CPT/HCPCS: 0241U; 36415; 80053; 80143; 80179; 80307; 81001; 82077; 85025; 85027; 93268; 99285; G0378; Q3014; 90791; J1650; A9270-GY